=== PATIENT | female | born 1950 | race Two or more races ===

== ENCOUNTER 2022-05-05 06:20 | Day surgery (SDC) | payer OTHER ==
[~2022-05-05] VITALS: Ht 149.9 cm; Wt 64.4 kg
[~2022-05-05 06:20] MED LIST: ATORVASTATIN CA20 MG PO; COZAAR25 MG PO; METFORMIN PO; PEPCID AC10 MG PO; PLAVIX75 MG PO; SINGULAIR10 MG PO; SYNTHROID100 MCG PO
== END 2022-05-05 16:20 | disposition home or self-care (01) ==
LOC: CIR.AMB 06:20
PROVIDERS: ATTEND Orthopaedic Surgery
DX: M75.122 Complete rotator cuff tear or rupture of left shoulder, not specified as traumatic (principal); M65.812 Other synovitis and tenosynovitis, left shoulder; M75.22 Bicipital tendinitis, left shoulder; Z88.6 Allergy status to analgesic agent; Z88.5 Allergy status to narcotic agent; Z20.822 Contact with and (suspected) exposure to COVID-19; I10 Essential (primary) hypertension; E11.9 Type 2 diabetes mellitus without complications; Z79.84 Long term (current) use of oral hypoglycemic drugs; E03.9 Hypothyroidism, unspecified